=== PATIENT | female | born 1945 | race Caucasian/White ===

== ENCOUNTER 2018-12-31 14:42 | Emergency (ER) | payer MEDICARE, BC ==
[~2018-12-31] VITALS: Ht 162.6 cm; Wt 68.0 kg
[2018-12-31 15:04] VITALS: BP 158/99
--- NOTE | 2018-12-31 15:05 | NUR ---
Patient discharged to home in stable conditon. Written and verbal after care instructions given. Patient verbalizes understanding of instructions.
== END 2018-12-31 15:05 | disposition home or self-care (01) ==
LOC: ER 14:42
DX: J20.9 Acute bronchitis, unspecified (principal); Z88.0 Allergy status to penicillin; Z88.2 Allergy status to sulfonamides
CPT/HCPCS: A4663